=== PATIENT | female | born 1960 | race Caucasian/White ===

== ENCOUNTER 2024-08-12 19:39 | Emergency (ER) | payer MEDICARE, OTHER ==
[2024-08-12 19:56] LABS: APPEARANCE,URINE TURBID (CLEAR); BILIRUBIN,URINE NEGATIVE (NEGATIVE); COLOR,URINE YELLOW (YELLOW); GLUCOSE,URINE NEGATIVE (NEGATIVE); KETONES,URINE NEGATIVE (NEGATIVE); LEUKOCYTE ESTERASE,URINE SMALL (NEGATIVE); NITRITE,URINE POSITIVE (NEGATIVE); OCCULT BLOOD,URINE LARGE (NEGATIVE); PROTEIN,URINE >=300 mg/dL (NEGATIVE); UROBILINOGEN,URINE 0.2 EU/dL (0.2-1.0)
[2024-08-12 20:06] LABS: AMORPHOUS SEDIMENT,URINE NOT SEEN; EPITHELIAL CELLS,URINE NOT SEEN; MUCUS,URINE NOT SEEN; RBC,URINE 20-30 (0-5); WBC,URINE >100 (0-5)
[2024-08-12 20:07] LABS: BACTERIA,URINE MANY
== END 2024-08-12 20:29 | disposition home or self-care (01) ==
LOC: JP.ED 19:39
DX: N39.0 Urinary tract infection, site not specified (principal); E78.00 Pure hypercholesterolemia, unspecified; Z79.899 Other long term (current) drug therapy; Z79.811 Long term (current) use of aromatase inhibitors
CPT/HCPCS: 81001; 87086; 99283